=== PATIENT | female | born 1965 | race Two or more races ===

== ENCOUNTER 2020-05-15 15:52 | Outpatient (CLI) | payer OTHER, SELFPAY | END 2020-05-15 15:53 | disposition home or self-care (01) | LOC: ANHCOVIDVC 15:53 | DX: Z23 Encounter for immunization (principal) | CPT/HCPCS: 0001A; 91300 ==

== ENCOUNTER 2020-06-05 16:01 | Outpatient (CLI) | payer OTHER, SELFPAY | END 2020-06-05 16:02 | disposition home or self-care (01) | LOC: ANHCOVIDVC 16:01 | DX: Z23 Encounter for immunization (principal) | CPT/HCPCS: 0002A; 91300 ==